=== PATIENT | female | born 1965 | race Caucasian/White ===

== ENCOUNTER 2023-05-04 09:30 | Emergency (ER) | payer OTHER, SELFPAY ==
[2023-05-04] VITALS (7 sets, daily range): BP systolic 111–136; BP diastolic 57–92; BMI 23.4
--- NOTE | 2023-05-04 10:46 | ED.GENMED ---
History of Present Illness
General
Chief Complaint: Cold/Flu/URI Symptoms
Source: patient
Exam Limitations: none
Time Seen by Provider: 05/04/23 10:45
Nursing documentation reviewed up to this point in time: agreed with
Travel History
Have you had any contact with someone who has COVID-19?: No
Do you have any symptoms of coronavirus? Fever > 100 degrees, chills, cough, shortness of breath, sore throat, loss of taste or smell, muscle aches, or headache?: No
History of Present Illness
History of Present Illness:
57-year-old female smoker with history of Bernal's esophagus, IBS here reportedly for fever past 5 days 100.4. Last night temp max was 103. She went to PCP office today and had a temp of 101.4. She complains of a headache, neck pain, difficulty
sleeping overnight. Tested negative for COVID 3 times at home and negative flu test in office today. She has been on cefprozil 500 mg twice daily for the past 3 days for a sinus infection diagnosed at urgent care.
Past History
Past History
ED Past Medical History: GERD and Other (year round allergies)
ED Past Surgical History: Bowel resection (For diverticulitis) and
Social History
Tobacco: Non-smoker
Review of Systems
Review of Systems
Allergies reviewed?: Yes
All Other Systems: ROS reviewed and negative except as documented in HPI and ROS
Constitutional: Reports fever
Respiratory: Denies cough or trouble breathing
Cardiac: Denies chest pain
ABD/GI: Denies abdominal pain, nausea, vomiting or diarrhea
: Denies dysuria, frequency, flank pain or difficulty voiding
Musculoskeletal: Reports neck pain and other (general body aches)
Skin: Reports no symptoms
Neurological: Reports no symptoms
Phy Exam
Physical Exam
Physical Exam:
GENERAL: No acute distress. A&Ox3.
CONSTITUTIONAL:Temp 103.0 now
EYES:clear, conjunctivae normal
Neck: Supple, no palpable lymph nodes, full ROM, no nuchal rigidity
ENMT: moist mucus membranes, Pharynx nl, TMs normal
RESPIRATORY: Regular respirations, nonlabored, lungs with good air movement, mild wheezing right upper lung field
CARDIOVASCULAR: Regular rate and rhythm, no murmurs, no rubs.
GI: Soft, nontender, normal BS
MUSCULOSKELETAL: Moves with ease. Well perfused.
SKIN: Warm, dry, pink
PSYCH: Normal mood and affect. Well kept, interactive and appropriate
NEUROLOGIC: Awake, alert and oriented. No focal neurological deficits
Course
Orders/Labs/Results
Orders:
Orders
05/04/23 11:02
IV Insert/Care/Rem.- Treatment PRN
0.9% Sodium Chloride 1000 ml [Nss] 1,000 ml IV BOLUS
CR Chest - 2 Views Urgent
Comment:
Reason For Exam: fever
05/04/23 11:03
Ketorolac [Toradol] 15 mg IV NOW STA
05/04/23 11:22
COVID-19 Antigen Urgent
Source: Nasal Swab
Complete Blood Count/With Diff Urgent
Comprehensive Metabolic Panel Urgent
Lactic Acid Q4H
Comment: CANCEL 2nd LACTIC ACID IF 1st LACTIC ACID IS LESS THAN 2
Blood Culture Q30M
[place] Source: Blood/Venous
Specimen Description:
Blood Culture Q30M
[place] Source: Blood/Venous
Specimen Description:
Influenza A+B Rapid Molecular Urgent
[place] Source: Nasal Swab
Specimen Description:
05/04/23 11:25
Urinalysis Reflex To Culture Urgent
Date Specimen was Collected: 05/04/23
Time Specimen was Collected: 11:24
Urine Microscopic Reflex Cult Urgent
05/04/23 14:15
Acetaminophen [Tylenol] 1,000 mg PO NOW STA
05/04/23 14:16
Amoxicillin 875 mg/Clav 125 mg [Augmentin 875 mg/125 mg] 1 tablet PO NOW STA
05/04/23 14:17
Azithromycin [Zithromax] 500 mg PO NOW STA
Abnormal Lab Results
05/04/23 05/04/23
11:22 11:25
MCH 31.8 H pg
(27.0-31.0)
Absolute Lymphs (auto) 1.1 L 10^3/uL
(1.2-3.4)
Neutrophils % 75.5 H %
(42.2-75.2)
Lymphocytes % 15.4 L %
(20.5-51.1)
Sodium 132 L mmol/L
(135-145)
Glucose 121 H mg/dl
(70-99)
AST 211 H U/L
(14-36)
ALT 220 H U/L
(0-35)
Alkaline Phosphatase 230 H U/L
(38-126)
Urine Ketones 1+ A
(Negative)
Ur Occult Blood Reflex 4+ A
(Negative)
Leukocyte Esterase Rfl Trace A
(Negative)
Urine RBC 50-60 A /HPF
(0-2)
Urine Bacteria (Reflex) Few A
(Negative)
Urine Albumin (Reflex) 1+ A
(Neg - Trace)
05/04/23 11:22
05/04/23 11:22
Vital Signs
Initial and Last Documented VS:
Initial Vital Signs
Temp Pulse Resp BP Pulse Ox
100.6 F H 101 18 136/92 98
05/04/23 09:32 05/04/23 09:32 05/04/23 09:32 05/04/23 09:32 05/04/23 09:32
Last Documented Vital Signs
Temp Pulse Resp BP Pulse Ox
100.6 F H 87 13 129/70 96
05/04/23 15:19 05/04/23 15:06 05/04/23 15:06 05/04/23 15:06 05/04/23 15:06
Pen Rider consulted with Physician
Pen Rider consulted with physician?: Yes
Name of Physician Consulted: Harrison
MDM/Problems Addressed
Differential Diagnosis Includes:
Viral illness, PNA
MDM/Problems Addressed:
57-year-old female smoker with history of year round seasonal allergies on Zyrtec, Rhinocort, Singulair, Arnuity, hx of Bernal's esophagus, IBS here reportedly for fever past 5 days 100.4. Last night temp max was 103. She went to PCP office today
and had a temp of 101.4. She complains of a headache, neck pain, difficulty sleeping overnight. Tested negative for COVID 3 times at home and negative flu test in office today. She has been on Cefprozil 500 mg twice daily for the past 3 days for
a sinus infection diagnosed at urgent care.
Last Tylenol 1000 mg 5 a.m.
Last Ibuprofen last p.m.
No meningeal signs
Temp 103.0 for this examiner
NAD, moving well. Ambulating well.
05/04/2023 1236 PM
CBC normal
CMP: Elevated liver enzymes otherwise normal
UA: Negative for infection, 50-60 RBCs
05/04/2023 1402 PM
Chest x-ray radiology report read: Mild to moderate right middle lobe pneumonia
Pt has been on Cefprozil, will DC that and start Azithromycin and Augmentin.
Case discussed with Dr. Terry who agrees.
05/04/[address] Lydia Davies who sent patient in with the plan. She will recheck liver functions. She will have someone from the office reach out to patient on Saturday to check on her.
Pt ambulated out with normal gait.
*Critical Care Note
Total Time (30-74mins, 75-104mins- exclusive of procedures): Not Applicable
ED Attending Note
-
Portions of this chart may have been created with voice recognition software.� Occasional wrong word or��sound alike� substitutions may have occurred due to the inherent limitations of voice recognition software.
Discharge Plan
Departure
Patient Disposition: Home (Routine Discharge)
Date of Disposition: 05/04/23
Time of Disposition: 15:20
Patient with high blood pressure during this ER visit?: No
Condition: Fair
Discharge Problem:
Pneumonia
Instructions: Pneumonia in adults, Fever, Adult (DC)
Prescriptions:
New
amoxicillin-pot clavulanate 875-125 mg tablet
1 tab PO BID Qty: 19 0RF
hydrocodone-acetaminophen 5-300 mg tablet
1 tab PO Q6H PRN (Reason: Pain) Qty: 6 0RF
azithromycin [Zithromax] 250 mg tablet
250 mg PO DAILY Qty: 4 0RF
No Action
budesonide [Rhinocort Allergy] 8.43 ML spray,non-aerosol
8.43 ml NS BID
montelukast 10 MG tablet
10 mg PO DAILY
cetirizine [Zyrtec] 10 MG tablet,disintegrating
10 mg PO DAILY
omeprazole 40 MG capsule,delayed release(DR/EC)
40 mg PO DAILY
calcium carbonate 600 MG tablet
600 mg PO BID
colesevelam [WelChol] 625 MG tablet
625 mg PO DAILY
cholecalciferol (vitamin D3) [Vitamin D3] 2,000 UNIT capsule
2,000 unit PO WEEKLY
Referrals:
Negin Meza MD [Family Provider] - Follow up in 2-3 days
Activity Restrictions/Additional Instructions:
As we discussed, I sent prescriptions to your pharmacy for Vicodin as needed for moderate to severe neck pain. Use Tylenol or Ibuprofen for mild to moderate neck pain,
and for Azithromycin and Augmentin antibiotics.
I informed Dr. Davies of your treatment plan and asked if someone from the office could call to check on you Saturday.
If you don't hear from them by noon, give them a call and let them know how you are doing.
Return here immediately for vomiting, worsening neck pain or headache, feeling sicker in any way.
Interventions
Interventions:
*Risk Screen - Suicide Last Done: 05/04/23 12:49
*General Assessment Last Done: 05/04/23 12:49
*Neglect/Abuse Screening Last Done: 05/04/23 12:49
ED- Fall Risk Assessment Last Done: 05/04/23 12:49
*ED COVID-19 Vaccine History Last Done: 05/04/23 12:48
*Nursing Disposition Last Done: 05/04/23 15:42
ED- Pulmonary Assessment Last Done: 05/04/23 12:50
Discharge Date and Time
Discharge Date/Time: 05/04/23 15:44
[2023-05-04] MEDS: TORADOL 15 MG IV (11:32)
[2023-05-04] MEDS: NSS 1000 IV (11:33)
[2023-05-04 11:50] LABS: % Basophils 0.3 % (0-2); % Eosinophils 0.1 % (0-6); % Immature Granulocytes 0.4 % (0-0.5); % Lymphocytes 15.4 % (20.5-51.1); % Monocytes 8.3 % (1.7-9.3); % Neutrophils 75.5 % (42.2-75.2); Absolute Lymphocytes 1.1 10^3/uL (1.2-3.4); Absolute Monocytes 0.6 10^3/uL (0.1-0.6); Absolute Neutrophils 5.6 10^3/uL (1.4-6.5); Hematocrit 38.3 % (37.0-47.0); Hemoglobin 13.5 g/dL (12.0-16.0); Mean Corp Hgb Conc. 35.2 g/dL (33.0-37.0); Mean Corpuscular Hgb 31.8 pg (27.0-31.0); Mean Corpuscular Volume 90.1 fL (81.0-99.0); Mean Platelet Volume 8.6 fL (7.4-10.4); Nucleated Red Blood Cells % 0 %; Platelet Count 229 10^3/uL (130-400); Red Blood Cell Count 4.25 10^6/uL (4.20-5.40); Red Cell Dist. Width 12.8 % (11.5-14.5); White Blood Cell Count 7.4 10^3/uL (4.8-10.8)
[2023-05-04 11:55] LABS: Urine Albumin 1+ (Neg - Trace); Urine Bilirubin Negative (Negative); Urine Character Clear (Clear); Urine Color Yellow; Urine Glucose Negative (Negative); Urine Ketone 1+ (Negative); Urine Leukocyte Trace (Negative); Urine Nitrite Negative (Negative); Urine Occult Blood 4+ (Negative); Urine Urobilinogen 1+ (Neg - 1+)
[2023-05-04 12:15] LABS: Lactic Acid 0.8 mmol/L (0.7-2.0)
[2023-05-04 12:17] LABS: ALT (SGPT) 220 U/L (0-35); AST (SGOT) 211 U/L (14-36); Albumin 3.7 g/dl (3.5-5.0); Alkaline Phosphatase 230 U/L (38-126); Blood Urea Nitrogen 8 mg/dl (7-17); Calcium 8.8 mg/dl (8.4-10.2); Carbon Dioxide 24 mmol/L (22-30); Chloride 103 mmol/L (98-107); Glucose 121 mg/dl (70-99); Potassium 3.7 mmol/L (3.5-5.1); Sodium 132 mmol/L (135-145); Total Bilirubin 0.3 mg/dl (0.2-1.3); Total Protein 6.3 g/dl (6.3-8.2); eGFR > 60.00
[2023-05-04 12:20] LABS: COVID-19 Antigen Negative (Negative)
[2023-05-04 12:41] LABS: Urine Mucus Moderate; Urine Squamous Cell 16-20 /LPF (Few)
[2023-05-04 12:43] LABS: Urine Bacteria Few (Negative); Urine Red Blood Cell 50-60 /HPF (0-2)
[2023-05-04] MEDS: AUGMENTIN 875 MG/125 MG 1 TABLET PO (14:38)
[2023-05-04] MEDS: ZITHROMAX 500 MG PO (14:38)
[2023-05-04] MEDS: TYLENOL 1000 MG PO (14:39)
== END 2023-05-04 15:44 | disposition home or self-care (01) ==
LOC: EMR 09:30
PROVIDERS: Registered Nurse; EMERGENCY PHYSICIAN Emergency Medicine; FAMILY PHYSICIAN Internal Medicine
DX: J18.9 Pneumonia, unspecified organism (principal); J01.90 Acute sinusitis, unspecified; M54.2 Cervicalgia; R51.9 Headache, unspecified; Z11.52 Encounter for screening for COVID-19; K58.9 Irritable bowel syndrome, unspecified; K21.9 Gastro-esophageal reflux disease without esophagitis; K22.70 Barrett's esophagus without dysplasia; M81.0 Age-related osteoporosis without current pathological fracture; M85.80 Other specified disorders of bone density and structure, unspecified site; F41.9 Anxiety disorder, unspecified; F17.210 Nicotine dependence, cigarettes, uncomplicated; Z98.0 Intestinal bypass and anastomosis status; Z88.1 Allergy status to other antibiotic agents; Z91.048 Other nonmedicinal substance allergy status
CPT/HCPCS: 99284; 96374; 96361; 71046; 80053; 81003; 81015; 83605; 85025; 87040; 87502; 87811

== ENCOUNTER → 2023-06-14 14:20 | Outpatient (REF) | payer OTHER, SELFPAY | LOC: HWRAD 14:20 | PROVIDERS: ATTENDING PHYSICIAN Internal Medicine Critical Care Medicine; FAMILY PHYSICIAN Internal Medicine | DX: F17.210 Nicotine dependence, cigarettes, uncomplicated (principal) | CPT/HCPCS: 71271 ==

== ENCOUNTER → 2023-12-06 09:06 | Outpatient (REF) | payer OTHER, SELFPAY | LOC: HWWDC 09:06 | PROVIDERS: ATTENDING PHYSICIAN Internal Medicine; REFERRING PHYSICIAN Obstetrics & Gynecology | DX: Z12.39 Encounter for other screening for malignant neoplasm of breast (principal) | CPT/HCPCS: 77063; 77067 ==

== ENCOUNTER 2024-05-20 08:36 | Outpatient (RCR) | payer OTHER, SELFPAY ==
[2024-05-20 08:57] VITALS: BP 129/80
[2024-05-20] MEDS: RECLAST 100 IV (09:06)
== END 2024-05-21 11:05 | disposition home or self-care (01) ==
LOC: OID 08:36
PROVIDERS: ATTENDING PHYSICIAN Internal Medicine Endocrinology, Diabetes & Metabolism; FAMILY PHYSICIAN Internal Medicine
DX: M81.0 Age-related osteoporosis without current pathological fracture (principal); F17.210 Nicotine dependence, cigarettes, uncomplicated; E55.9 Vitamin D deficiency, unspecified; Z59.71 Insufficient health insurance coverage
CPT/HCPCS: 96365; J3489

== ENCOUNTER 2024-05-27 10:07 | Emergency (ER) | payer OTHER, SELFPAY ==
[2024-05-27 10:10] VITALS: BP 138/90
[2024-05-27 10:56] LABS: % Basophils 0.8 % (0-2); % Eosinophils 0.8 % (0-6); % Immature Granulocytes 0.3 % (0-0.5); % Lymphocytes 29.8 % (20.5-51.1); % Monocytes 9.3 % (1.7-9.3); Absolute Basophils 0.1 10^3/uL (0-0.2); Absolute Eosinophils 0.1 10^3/uL (0-0.7); Absolute Lymphocytes 2.7 10^3/uL (1.2-3.4); Absolute Monocytes 0.8 10^3/uL (0.1-0.6); Absolute Neutrophils 5.3 10^3/uL (1.4-6.5); Hematocrit 44.8 % (37.0-47.0); Hemoglobin 15.3 g/dL (12.0-16.0); Mean Corp Hgb Conc. 34.2 g/dL (33.0-37.0); Mean Corpuscular Hgb 31.9 pg (27.0-31.0); Mean Corpuscular Volume 93.5 fL (81.0-99.0); Mean Platelet Volume 8.6 fL (7.4-10.4); Nucleated Red Blood Cells % 0 %; Platelet Count 283 10^3/uL (130-400); Red Blood Cell Count 4.79 10^6/uL (4.20-5.40); Red Cell Dist. Width 12.4 % (11.5-14.5)
[2024-05-27 10:59] LABS: ALT (SGPT) 16 U/L (0-35); AST (SGOT) 20 U/L (14-36); Albumin 4.1 g/dl (3.5-5.0); Alkaline Phosphatase 54 U/L (38-126); Blood Urea Nitrogen 9 mg/dl (7-17); Calcium 10.1 mg/dl (8.4-10.2); Carbon Dioxide 28 mmol/L (22-30); Chloride 108 mmol/L (98-107); Glucose 114 mg/dl (70-99); Lipase 73 U/L (23-300); Potassium 4.1 mmol/L (3.5-5.1); Sodium 141 mmol/L (135-145); Total Bilirubin 0.5 mg/dl (0.2-1.3); Total Protein 6.7 g/dl (6.3-8.2); eGFR > 60.00
--- NOTE | 2024-05-27 11:19 | ED.GENMED ---
History of Present Illness
General
Chief Complaint: Abdominal Pain
Source: patient and records
Exam Limitations: none
Time Seen by Provider: 05/27/24 10:43
Nursing documentation reviewed up to this point in time: agreed with
History of Present Illness
History of Present Illness:
58-year-old female with a past medical history as noted presents to the ER for evaluation of abdominal pain. Patient reports that symptoms started a few days ago and have been constant and progressive since then. She says initially they started
focally in the left lower quadrant since then starting to radiate diffusely. She did see her primary doctor who thought symptoms could be from diverticulitis and started her on Augmentin; she has taken 2 total doses but with progression of pain she
was referred to the ER for further assessment and imaging. She does have history of diverticulitis in the past and required partial colon resection. She has had fever she says Tmax 101 �F at home. She denies any diarrhea in fact has been mildly
constipated. No nausea or vomiting. No urinary symptoms. Denies other complaints.
Past History
Past History
ED Past Medical History: GERD and Other (year round allergies)
ED Past Surgical History: Bowel resection (For diverticulitis) and
Social History
Tobacco: Non-smoker
Review of Systems
Review of Systems
All Other Systems: ROS reviewed and negative except as documented in HPI and ROS
Constitutional: Reports fever and chills
Respiratory: Denies trouble breathing
Cardiac: Denies chest pain
ABD/GI: Reports abdominal pain and constipated; Denies nausea, vomiting or diarrhea
: Denies dysuria, frequency or flank pain
Musculoskeletal: Denies neck pain or back pain
Neurological: Denies dizzy or headache
Phy Exam
Physical Exam
Physical Exam:
General: Awake, alert, oriented x3; no acute distress
Head: Normocephalic, atraumatic
Eyes: Conjunctiva normal, sclera anicteric
Throat: Airway intact, handling secretions
Neck: Trachea midline, supple without meningismus
Lungs: Clear to auscultation bilaterally, no wheezing, rales, rhonchi
Heart: Regular rate and rhythm, no murmurs, gallops, or rubs
Abd: Soft, non distended, tender to palpation across lower abdomen worse on the left; no palpable masses
Neuro: No gross deficits
Skin: no rash in area of concern
Extremities: Warm and well-perfused with no edema
Scores
Heart Failure Risk
Heart Failure Risk Score: Not Applicable
Heart Score for Chest Pain Patients
STEMI patient?: Not applicable
Withdrawal Assessment of Alcohol
Withdrawal Assessment Completed?: Not applicable
Course
Orders/Labs/Results
Orders:
Orders
05/27/24 10:19
Complete Blood Count/With Diff Urgent
Comprehensive Metabolic Panel Urgent
Lipase Urgent
05/27/24 10:40
CT Abd/pelvis W Iv Cont Urgent
Comment:
Reason For Exam: abdominal pain, c/f diverticulitis
05/27/24 10:41
Urinalysis Reflex To Culture Urgent
Abnormal Lab Results
05/27/24
10:19
MCH 31.9 H pg
(27.0-31.0)
Absolute Monos (auto) 0.8 H 10^3/uL
(0.1-0.6)
Chloride 108 H mmol/L
(98-107)
Glucose 114 H mg/dl
(70-99)
05/27/24 10:19
05/27/24 10:19
Vital Signs
Initial and Last Documented VS:
Initial Vital Signs
Temp Pulse Resp BP Pulse Ox
36.8 C 102 16 138/90 96
05/27/24 10:10 05/27/24 10:10 05/27/24 10:10 05/27/24 10:10 05/27/24 10:10
Last Documented Vital Signs
Temp Pulse Resp BP Pulse Ox
36.8 C 102 16 138/90 96
05/27/24 10:10 05/27/24 10:10 05/27/24 10:10 05/27/24 10:10 05/27/24 10:10
Procedures
IV Access
Indication: Emergent access required
Performed by:: Bertrand Terry MD
Site:: right AC
Gauge:: 20G
Ultrasound Guidance: No
MDM/Problems Addressed
Differential Diagnosis Includes:
Diverticulitis, nephrolithiasis, UTI, pancreatitis
MDM/Problems Addressed:
58-year-old female with history as noted presents to the ER with worsening abdominal pain initially left lower quadrant now radiating diffusely. Tachycardic otherwise normal vitals. Physical exam as above notable for tenderness across lower
abdomen worse on the left. IV placed labs sent off including a CBC and a CMP, lipase. Check urinalysis. Will check CT of the abdomen pelvis. Treat pain. Monitor closely reassess after the above.
*Radiology
Radiology exam reviewed: radiology read reviewed
*Pulse Oximetry
Patient hypoxic: no
*Critical Care Note
Total Time (30-74mins, 75-104mins- exclusive of procedures): Not Applicable
Data Reviewed
Review of Other/Old Records Reveals: Labs and Records
Source: patient and records
ED Attending Note
-
Portions of this chart may have been created with voice recognition software.� Occasional wrong word or��sound alike� substitutions may have occurred due to the inherent limitations of voice recognition software.
Discharge Plan
Departure
Prescriptions:
No Action
budesonide [Rhinocort Allergy] 8.43 ML spray,non-aerosol
8.43 ml NS DAILY
montelukast 10 MG tablet
10 mg PO HS
Zyrtec 10 MG tablet,disintegrating
10 mg PO HS
omeprazole 40 MG capsule,delayed release(DR/EC)
20 mg PO HS
calcium carbonate 600 MG tablet
600 mg PO DAILY
cholecalciferol (vitamin D3) [Vitamin D3] 2,000 UNIT capsule
5,000 unit PO HS
Referrals:
Negin Meza MD [Family Provider] -
Interventions
Interventions:
*Risk Screen - Suicide Last Done: 05/27/24 10:10
*General Assessment Last Done: 05/27/24 10:10
*Neglect/Abuse Screening Last Done: 05/27/24 10:10
*ED COVID-19 Vaccine History Last Done: 05/27/24 10:10
Discharge Date and Time
Print Language: [place]
[2024-05-27] MEDS: TORADOL 15 MG IV (12:08)
[2024-05-27 12:09] VITALS: BP 121/71
[2024-05-27] MEDS: NSS 500 IV (12:09)
[2024-05-27 12:14] VITALS: BMI 22.9
== END 2024-05-27 13:33 | disposition home or self-care (01) ==
LOC: EMR 10:07
PROVIDERS: Student in an Organized Health Care Education/Training Program; EMERGENCY PHYSICIAN Emergency Medicine; FAMILY PHYSICIAN Internal Medicine
DX: R10.84 Generalized abdominal pain (principal); Z87.19 Personal history of other diseases of the digestive system; Z90.49 Acquired absence of other specified parts of digestive tract
CPT/HCPCS: 96374; 96361; 99284; 74177; 80053; 83690; 85025; Q9967

== ENCOUNTER 2024-07-01 06:30 | Day surgery (SDC) | payer OTHER, SELFPAY | END 2024-07-01 10:18 | disposition home or self-care (01) | LOC: GI 06:30 | PROVIDERS: ATTENDING PHYSICIAN Internal Medicine | DX: R93.3 Abnormal findings on diagnostic imaging of other parts of digestive tract (principal); K62.1 Rectal polyp; K64.9 Unspecified hemorrhoids; Z98.0 Intestinal bypass and anastomosis status | CPT/HCPCS: 45331; 88305 ==

== ENCOUNTER → 2024-08-11 09:12 | Outpatient (REF) | payer OTHER, SELFPAY | LOC: HWRAD 09:12 | PROVIDERS: ATTENDING PHYSICIAN Internal Medicine Endocrinology, Diabetes & Metabolism; FAMILY PHYSICIAN Internal Medicine; REFERRING PHYSICIAN Internal Medicine Critical Care Medicine | DX: M81.0 Age-related osteoporosis without current pathological fracture (principal); Z87.891 Personal history of nicotine dependence | CPT/HCPCS: 71271; 77080 ==

== ENCOUNTER → 2024-12-07 15:50 | Outpatient (REF) | payer OTHER, SELFPAY | LOC: HWRAD 15:50 | PROVIDERS: ATTENDING PHYSICIAN Internal Medicine | DX: J18.9 Pneumonia, unspecified organism (principal) | CPT/HCPCS: 71046 ==